=== PATIENT | male | born 1980 ===

== ENCOUNTER 2018-05-07 02:21 | Emergency (ER) | payer SELFPAY ==
[~2018-05-07 02:21] MED LIST: Sodium Chloride 0.9% 1,000 ML BAG ONE; Sodium Chloride 0.9% 100 ML BAG ONE
[2018-05-07] MEDS ORDERED: Ziprasidone 20 MG VIAL ONE (02:34)
[2018-05-07] MEDS ORDERED: diphenhydrAMINE 50 MG/ML VIAL ONE (02:49)
[2018-05-07 02:59] LABS: Acetaminophen Less than 6.0 mcg/mL (10.0-30.0); Alcohol Less than 10 mg/dL (Less than 10); Salicylate Less than 8.0 mg/dL (15.0-30.0)
[2018-05-07 03:01] LABS: ALT (SGPT) 16 U/L (8-55); AST (SGOT) 25 U/L (5-34); Albumin 3.7 g/dL (3.5-5.0); Alkaline Phosphatase 87 U/L (40-150); Anion Gap 13 mmol/L (10-20); BUN (Urea Nitrogen) 10 mg/dL (8.9-20.6); Bilirubin, Total 0.4 mg/dL (0.2-1.2); Calc. Creatinine Clearance 0 mL/min (70-130); Calcium 8.2 mg/dL (7.8-10.44); Carbon Dioxide 24 mmol/L (22-29); Chloride 105 mmol/L (98-107); Estimated GFR-MDRD 67; Globulin 3.2 g/dL (2.4-3.5); Glucose 222 mg/dL (70-105); Protein, Total 6.9 g/dL (6.0-8.3); Sodium 140 mmol/L (136-145)
[2018-05-07] MEDS ORDERED: Ketamine 50 MG/ML (10ML VIAL) ONE (03:01)
[2018-05-07 03:04] LABS: CKMB 2.3 ng/mL (0-6.6); Troponin I 0.126 ng/mL (< 0.028)
[2018-05-07 03:22] LABS: Potassium 2.4 mmol/L (3.5-5.1)
[2018-05-07 03:28] LABS: Band 1 % (5-11); Hemoglobin 15.8 g/dL (14.0-18.0); Lymphocytes 15 % (21-51); MDiff Complete? YES; Mean Corpuscular HGB CONC 31.5 g/dL (32.0-36.0); Mean Corpuscular Hemoglobin 28.6 pg (27.0-31.0); Mean Platelet Volume 8.3 fL (7.4-10.4); Monocytes 4 % (0-10); Neutrophil 70 % (42-75); PLT Morphology Comment Appears Adequate; Platelet Count 320 thou/uL (130-400); RBC Distribution Width 11.7 % (11.5-14.5); RBC Morphology Normal; Reactive Lymphocytes 10 % (0-10); Red Blood Cell (RBC) Count 5.53 mill/uL (4.70-6.10); White Blood Cell (WBC) Count 25.1 thou/uL (4.8-10.8)
[2018-05-07] MEDS ORDERED: Midazolam HCl 10 mg/2 ml Vial ONE ×2 (03:28→03:47)
[2018-05-07] MEDS ORDERED: Potassium Chloride 20 MEQ/100 ML PREMIX BAG ONE (03:47)
--- NOTE | 2018-05-07 08:08 | CT ---
PRELIMINARY REPORT/[facility]/EMERGENTY AFTER-HOURS PROCEDURE Addendum created by Paulie Yuan MD on 05/07/2018 4:06 AM Central Time ([place] & [place]) THIS REPORT CONTAINS FINDINGS THAT MAY BE CRITICAL TO PATIENT CARE. The findings were verbally commun icated via telephone conference with WILLIAM Mahmood by Dr. Yuan on 05/07/2018 4:06 AM [employer]. e results were acknowledged and understood. Initial Report created on 05/07/2018 4:06 AM Central Time ([place] & [place]) CT Head Without Intravenous Contrast EXAM DATE/TIME: 05/07/2018 3:32 AM CLINICAL HISTORY: 37 years old, male; Signs and symptoms; Altered mental status/memory loss and coma or unconsciousness ; Confusion or disorientation; Patient HX: PT is a prisoner brought initially for AMS, heart rate and blood pressure extremely high. TECHNIQUE: Axial computed tomography images of the head/brain without intravenous contrast. COMPARISON: No relevant prior studies available. FINDINGS: Brain: Large, acute subarachnoid hemorrhage opacifying the basilar cisterns as well as cerebral sulci bilaterally. There is also hemorrhage layering within the ventricles and cerebral aqueduct. No hydro cephalus or visible herniation. No visible parenchymal hemorrhage. Ventricles: No shift or dilation. Bones/joints: No acute fracture. Sinuses: Patchy opacification maxillary sinuses, left > right. Mastoid air cells: Normal as visualized. No mastoid effusion. Soft tissues: No acute disease identified. 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 Intraventricular hemorrhage. No hydrocephalus or midline shift. No axial herniation. Thank you for allowing us to participate in the care of your patient. Dictated and Authenticated by: Paulie Yuan MD 05/07/2018 4:06 AM Central Time ([place] & [place]) FINAL REPORT BRAIN CT WITHOUT IV CONTRAST: EMERGENCY AFTER HOURS EXAM TIME: 3:33 a.m. DATE: 05/07/2018. FINDINGS: Extensive acute subarachnoid hemorrhage. There is also some associated intraventricular hemorrhage. No hydrocephalus. POS: [facility]
--- NOTE | 2018-05-07 09:12 | RAD ---
CHEST 1 VIEW: HISTORY: Seizure. COMPARISON: None. FINDINGS: There is extensive nodularity throughout the lungs. No pneumothorax or large effusion. No acute oss eous abnormality. IMPRESSION: Extensive nodular opacities throughout the lungs. This may be sequelae of atypical infection, althou gh metastatic disease cannot be totally excluded. Neurogenic edema is also a possibility. POS: [facility]
== END 2018-05-07 04:30 | disposition short-term general hospital (02) ==
LOC: MADERS 02:21
DX: I60.9 Nontraumatic subarachnoid hemorrhage, unspecified (principal); J80 Acute respiratory distress syndrome; E87.6 Hypokalemia
CPT/HCPCS: 31500; 36415; 70450; 71045; 80053; 80307; 82553; 83605; 84484; 85025; 93005; 94760; 96361; 96365; 96372; 96375; 96376; J1200; J2250; J3480; J3486; J7050